=== PATIENT | male | born 1950 | race American Indian/Alaskan Native ===

== ENCOUNTER 2016-11-17 12:31 | Emergency (ER) | payer MEDICARE, OTHER ==
[~2016-11-17] VITALS: Ht 185.4 cm; Wt 120.7 kg
[~2016-11-17 12:31] MED LIST: ALDACTONE25 MG PO; ALLEGRA180 MG PO; ALLOPURINOL300 MG PO; AMLODIPINE BESYL5 MG PO; ASPIR 8181 MG PO; ASPIRIN EC81 MG PO; ASPIRIN325 MG PO; CELECOXIB200 MG PO; COMBIVENT RESPIM4 GM INH; CRESTOR10 MG PO; CYCLOBENZAPRINE10 MG PO; DIAZEPAM5 MG PO; DILTIAZEM ER240 MG PO; DOCUSATE SODIU100 MG PO; DRISDOL50000 UNIT PO; ELIQUIS5 MG PO; FLOMAX0.4 MG PO; FOLIC ACID1 MG PO; GLUCOPHAGE XR500 MG PO; GLUCOPHAGE500 MG PO; GLUCOTROL XL10 MG PO; GLYBURIDE1.25 MG PO; HYDROMORPHONE HC4 MG PO; LASIX40 MG PO; LOVASTATIN20 MG PO; METOPROLOL SUCC50 MG PO; MIRALAX17 GM PO; NORCO 5-325 TA1 EACH PO; OMEGA-31000 MG PO; OXYCODONE HCL5 MG PO; PERCOCET 5-3251 EACH PO; TOPROL XL100 MG PO; ZESTRIL40 MG PO
[2016-11-17] MEDS ORDERED: VENTOLIN HFA18 GM INH (12:59)
[2016-11-17] MEDS ORDERED: ZOFRAN ODT4 MG PO (15:30)
[2016-11-17] MEDS ORDERED: NORCO 5-325 TA1 EACH PO (15:30)
== END 2016-11-17 16:30 | disposition home or self-care (01) ==
LOC: ED 12:31
DX: N20.0 Calculus of kidney (principal); E11.9 Type 2 diabetes mellitus without complications; I48.91 Unspecified atrial fibrillation; E78.00 Pure hypercholesterolemia, unspecified; Z85.46 Personal history of malignant neoplasm of prostate; Z88.8 Allergy status to other drugs, medicaments and biological substances; Z87.891 Personal history of nicotine dependence; Z79.899 Other long term (current) drug therapy; Z79.84 Long term (current) use of oral hypoglycemic drugs
CPT/HCPCS: 74178; 80053; 81001; 85025; 96374; 96375; 99284; J1170; J2405; Q9967

== ENCOUNTER 2022-04-14 06:52 | Day surgery (SDC) | payer MEDICARE, OTHER ==
[~2022-04-14] VITALS: Ht 185.4 cm; Wt 106.8 kg
[~2022-04-14 06:52] MED LIST changes: +B-121000 MC2 PO; +D3-5000125 MCG PO; +EVAC-U-GEN8.6 MG PO; +JARDIANCE10 MG PO; +LYRICA25 MG PO; +TIZANIDINE HCL4 M1 PO; +VENTOLIN HFA18 GM; +VENTOLIN HFA18 GM INH; +ZOFRAN ODT4 MG PO
--- NOTE | 2022-04-14 09:05 | NUR ---
04/14/22 0905 Katherin Ann 0901-PATIENT ARRIVED TO PACU ON 10L MASK PLACED ON 6L. NONAROUSABLE ORAL AIRWAY IN PLACE. LAYING LEFT LATERAL. ABDOMEN SOFT PASSING GAS. AFIB IVF INFUSING
--- NOTE | 2022-04-14 12:02 | OR ---
[facility] [address], [place] [address] Signed DATE OF OPERATION: 04/14/2022 SURGEON: Lilia Lopez MD PREOPERATIVE DIAGNOSES: 1. Personal history of colorectal polyps in 2007 at age 52. 2. Diverticulosis. 3. Internal hemorrhoids. POSTOPERATIVE DIAGNOSES: 1. Minimal sigmoid diverticulosis. 2. Zyuwmes-lu-jddqbobv internal hemorrhoids. 3. 5 mm polyp at hepatic flexure. 4. 5 mm polyp at 65 cm (left colon). 5. 5 mm polyp at 22 cm (sigmoid colon). 6. 4 mm polyp at 18 cm (rectum). PROCEDURE: Colonoscopy with hot biopsy. ESTIMATED BLOOD LOSS: None. INDICATIONS: Zaid is a 71-year-old diabetic gentleman, asked to return for followup colonoscopy. I helped him in 2007 at the age of 52 for his initial screening colonoscopy. He had six hyperplastic polyps removed, three serrated adenomatous polyps and one tubulovillous adenomatous polyp removed at 5 cm. He had diverticulosis. Two years later, he came back in 2009 at the age of 54. He had four hyperplastic polyps removed. Again, he had diverticulosis with internal hemorrhoids. He unfortunately was lost to followup. He is coming back now due to his personal history. He has no lower GI complaints. There is no family history of colon cancer or polyps. 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 He is also diabetic and now has atrial fibrillation. Given those findings, we did have monitored anesthesia care today with propofol infusion. That proved to be a lundberg decision. He also received antibiotics for the left knee replacement. In the office, I had given him a pamphlet on colonoscopy. He recalls the test. There is risk including, but not limited to gas bloating, crampy abdominal pain, bleeding, perforation requiring surgery, and missed diagnosis. He had expressed understanding and wished to proceed. Electronically Signed By: LILIA LOPEZ MD 04/14/22 1202 PATIENT NAME: AYSE UMANZOR OPERATIVE REPORT DATE OF : 54 REPORT #: [id number] PHYSICIAN: LILIA LOPEZ MD PCP: [facility] REPORT IS CONFIDENTIAL AND NOT TO BE RELEASED WITHOUT AUTHORIZATION [facility] [address], [place] [address] Signed PROCEDURE IN DETAIL: Zaid was taken into our endoscopy suite and placed in the left lateral decubitus position. He was given monitored anesthesia care with propofol per our nurse perioperative educator. A digital rectal exam was performed and he had good sphincter tone. No external hemorrhoids. His prostate is absent. No nodularity. No masses. The adult colonoscope had been introduced and advanced all the way around into the cecum under direct visualization of camera without difficulty. He had a little bit of solid stool in the colon. He probably could use a little more bowel prep. We could easily see the appendiceal orifice and ileocecal valve. The scope was then slowly withdrawn. The above-mentioned polyps were removed with the help of hot biopsy forceps. He does have moderate sized diverticula in the sigmoid colon. There were few in number, and scattered about. Once in the rectum, the scope had been retroflexed and he does have [id number] internal hemorrhoid columns. After this, the gas was suctioned out. The colonoscope removed. Zaid tolerated the procedure quite well. RECOMMENDATIONS: I will see Zaid back in my office in 7 to 14 days to review his results. I suspect he will be on the five year plan. He might use a little more bowel prep in the future. Lilia Lopez MD ALB/MODL /[id number] cc: Lilia Lopez MD [facility] Copies: LILIA LOPEZ MD [facility] ~ Electronically Signed By: LILIA LOPEZ MD 04/14/22 1202 PATIENT NAME: AYSE UMANZOR OPERATIVE REPORT DATE OF : 54 REPORT #: [id number] PHYSICIAN: LILIA LOPEZ MD PCP: [facility] REPORT IS CONFIDENTIAL AND NOT TO BE RELEASED WITHOUT AUTHORIZATION
== END 2022-04-14 09:40 | disposition home or self-care (01) ==
LOC: DS 06:52
PROVIDERS: ATTEND Colon & Rectal Surgery
PROC: 0DJD8ZZ Inspection of Lower Intestinal Tract, Via Natural or Artificial Opening Endoscopic (ICD-10-PCS; principal; 2022-04-14 08:15)
DX: Z12.11 Encounter for screening for malignant neoplasm of colon (principal); D12.7 Benign neoplasm of rectosigmoid junction; K57.30 Diverticulosis of large intestine without perforation or abscess without bleeding; K64.8 Other hemorrhoids; I13.0 Hypertensive heart and chronic kidney disease with heart failure and stage 1 through stage 4 chronic kidney disease, or unspecified chronic kidney disease; E11.22 Type 2 diabetes mellitus with diabetic chronic kidney disease; N18.2 Chronic kidney disease, stage 2 (mild); I50.22 Chronic systolic (congestive) heart failure; K62.1 Rectal polyp; I12.9 Hypertensive chronic kidney disease with stage 1 through stage 4 chronic kidney disease, or unspecified chronic kidney disease; F41.9 Anxiety disorder, unspecified
CPT/HCPCS: 00811; J0690; J2704; J7121